=== PATIENT | female | born 1965 | race Caucasian/White ===

== ENCOUNTER 2023-03-24 12:27 | Outpatient (NON) | payer BC, SELFPAY | END 2023-03-24 12:28 | disposition home or self-care (01) | LOC: ANHLAB 03-25 12:29 | PROVIDERS: PCP Physician Assistant Medical; Visit Provider Nurse Practitioner | DX: L72.0 Epidermal cyst (principal) | CPT/HCPCS: 88305 ==

== ENCOUNTER 2023-07-19 10:44 | Emergency (ER) | payer BC, SELFPAY ==
[2023-07-19 10:57] VITALS: BP 127/85; PULSE 86; RESP 18; TEMP 36.6; O2SAT 100
--- NOTE | 2023-07-19 11:32 | ED.GENADULT ---
HPI - General Adult General Chief complaint: Upper Respiratory Infection Stated complaint: Sore Throt,Congestion Time Seen by Provider: 07/19/23 11:32 History of Present Illness HPI narrative: 58-year-old female presents to clinic with complaints of sore throat, hoarseness, pain when swallowing, itchy ears that started . Patient reports taking [id number] medication that has not really helped. Denies fevers, chills, body aches, nausea, vomiting, diarrhea, and abdominal pain. patient states she does take daily antihistamines but did not take it today. Related Data Home Medications Medication Instructions Recorded Confirmed cholecalciferol (vitamin D3) 25 25 mcg PO DAILY 06/09/22 08/18/22 mcg (1,000 unit) capsule curamin BYMOUTH 06/09/22 08/18/22 cyanocobalamin (vitamin B-12) 5,000 mcg PO DAILY 06/09/22 08/18/22 1,000 mcg capsule ascorbic acid (vitamin C) 25 mg mg PO 07/19/23 07/19/23 tablet loratadine 10 mg tablet 10 mg PO DAILY 07/19/23 07/19/23 Allergies Allergy/AdvReac Type Severity Reaction Status Date / Time No Known Allergies Allergy Verified 07/19/23 11:17 Review of Systems Review of Systems: CONSTITUTIONAL: Denies fever, chills, or sweats. EYES: Denies visual changes, redness, or discharge. ENT: Denies rhinorrhea, congestion, positive sore throat, hoarseness, painful swallowing, and denies otalgia. positive bilateral ear itching. CARDIOVASCULAR: Denies chest pain, palpitations, or edema. RESPIRATORY: Denies cough or dyspnea. GASTROINTESTINAL: Denies abdominal pain, nausea, vomiting, or diarrhea. GENITOURINARY: Denies dysuria or hematuria. SKIN: Denies rash or itching. MUSCULOSKELETAL: Denies back pain, joint pain, or myalgia. NEUROLOGIC: Denies headache, numbness, or weakness. PSYCHIATRIC: Denies anxiety or depression. [facility] Past Medical History Medical History Allergic rhinitis mold, dust Anemia Anxiety Arthritis Cervical dysphagia Depression Fibromyalgia High cholesterol Hypertension Screening mammogram, encounter for Surgical History Surgical History History of cryosurgery 1994 Family History Family History Mother Heart disease Grandparent Osteoporosis maternal grandmother Colon polyp paternal grandfather Father Diabetes mellitus Heart disease Sibling Pancreatic cancer Other Breast cancer maternal aunt Malignant tumor of ovary maternal aunt Social History Social History (Updated 08/18/22 @ 09:51 by Zully Galicia [facility]) Smoking status: Never smoker Alcohol intake: current Alcohol use details: ocassional 2 x year Substance use: never Substance use type: does not use Living arrangements: other Additional living arrangements comments: Occupation/Education: retired Additional occupation/education comments: instructional aid Gender identity (if verbalized by the patient): Female Sexual Orientation (if Verbalized by the Patient): Straight or Heterosexual Comments At the time of my signature I agree with nursing past medical history, surgical, social, and family history. There is no relevant family history pertinent to the presenting complaint. Exam Narrative: GENERAL: Well-appearing, well-nourished, and in no acute distress. HEAD: Normocephalic, atraumatic. EYES: PERRLA and EOMI. ENT: Nares clear, no rhinorrhea or epistaxis. Mucous membranes moist. posterior pharynx is erythematous and tonsils are 2+ with erythema. Patient is hoarse when talking. Bilateral TMs are clear no erythema or foreign bodies the canal. NECK: Supple. positive bilateral submandibular lymphadenopathy CHEST: Clear to auscultation. No respiratory distress. HEART: Regular rate and rhythm. No murmur heard. Normal peripheral pulses. ABDOMEN: Sof
== END 2023-07-19 12:05 | disposition home or self-care (01) ==
PROVIDERS: Emergency Provider Nurse Practitioner Family; PCP Physician Assistant Medical
DX: J04.0 Acute laryngitis (principal); I10 Essential (primary) hypertension; F32.A Depression, unspecified; F41.9 Anxiety disorder, unspecified; Z79.899 Other long term (current) drug therapy
CPT/HCPCS: 87081; 87880; 99213; G0463

== ENCOUNTER 2023-12-14 12:30 | Outpatient (RCR) | payer BC, SELFPAY ==
--- NOTE | 2023-09-25 10:05 | OPREHPOC ---
Outpatient Therapy Plan of Care This is a Multidisciplinary Plan of Care that may contain components documented by all disciplines (PT, OT, and ST.) PT Problem 1 PT Problem #1 Knowledge Deficit PT Goal 1 Goal Pt will be independent in HEP Pt will verbalize understanding of diagnosis and prognosis Target Visit 6 PT Problem 2 PT Problem #2 Impaired Flexibility PT Goal 1 Goal Pt will demo improved hamstring flexibility by 10 degrees Target Visit 6 PT Goal 2 Goal Pt will demo only mild iliotibial band tightness joe Target Visit 12 PT Problem 3 PT Problem #3 Impaired Strength PT Goal 1 Goal Pt will demo 3/5 strength of greater in all tested planes for improved lumbar stability Target Visit 6 PT Goal 2 Goal Pt will demo 4/5 strength of greater in all tested planes for improved lumbar stability Target Visit 12 PT Problem 4 PT Problem #4 Impaired Range of Motion PT Goal 1 Goal Pt will demo lumbar active ROM of 80% or greater with minimal discomfort Target Visit 12 PT Goal 2 Goal Will demo joe hip ROM WFL without pain
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
--- NOTE | 2023-11-10 14:57 | PTOPPROG ---
Assessment and note entered by Tayler Jo, PT Evaluation Information Assessment Status Progress Diagnosis low back pain, other muscle spasm Onset a couple months Subjective Information Pt reports back spasms are doing pretty good . Silas one starting on the right side but it went away. Has been icing or doing exercises, or stopped doing the activity causing the spasm. That has only been once or twice through therapy. Knots in legs and lower spasms have really improved. Numbness into left arm still happens but infrequently. Nots sitting and leaning on LUE will cause issue but hasn't noticed as often as used to be. Hasn't been to work as much lately due to work not needing her assistance. cont to deny pain shooting into legs. Self-perceived improvement: 85% Defintely feels improved. Reports Thursday going to [employer] she realized she didn't notice her neck bothering her. Assessment PT Clinical Summary Pt has attended therapy consistently for her low back pain. During her therapy sessions, it became apparent her thoracic spine was also causing detriment. Pt demo's today greatly improved mobility, improved strength, greatly improved pain scores (with exception of fibromyalgia flare up). Pt reports feeling 85% improved, has met all her short term goals, and has progressed toward all long-term goals. Pt will still benefit from physical therapy with a decreased focus on manual and increased focus on self mobilization, stretching, strengthening, and independent progression once finished with therapy to promote maintenance of low pain levels and healthy activity levels with less pain. Plan of Care Interventions Electrical Stimulation,Hot Pack/Cold Pack,Manual Therapy,Mechanical Traction,Neuro Re-education, Therapeutic Activities,Therapeutic Exercise,Self- Care/Home Management,Ultrasound PT Services Indicated Yes Treatment Frequency and 1x weekly x 4 visits
--- NOTE | 2023-12-15 16:17 | PTOPDC ---
Assessment and note entered by Tayler Jo, PT Evaluation Information Assessment Status Discharge Diagnosis low back pain, other muscle spasm Onset a couple months Subjective Information Pt states feels 90% improved overall. Still has flare ups but not as often or as intense. Is returning to work, and notes half days are fine , but whole eight hour days are harder. States she is not doing all her exercises daily, when having flare ups is not doing her exercises. Has been icing as needed. Reported Pain Level Pain Score 0,0,1: Self Report Pain Score 0,0,1: Self Report Assessment PT Clinical Summary Pt has attended therapy consistently for low back pain and muscle spasm. She also presented with neck pain and upper back pain among other areas, in addition to a co-morbidity of fibromyalgia. Her quality of movement has improved significantly over therapy, along with her flexibility and strength. She reports feeling 90% improved over the course of therapy, is returning to work, reports highest pain level at 5/10 when she over does it , and today was instructed in maintenance home programs as well as fitness activities. She was also instructed in work related mobility modifications to reduce the strain on her back. Pt has also been educated in fibromyalgia being a diagnosis with flare ups, and continued stretching and mobility will only benefit her in the long run. Pt has made exceptional progress with therapy and will thus be discharged. Plan of Care PT Services Indicated No
== END 2023-12-16 08:23 | disposition home or self-care (01) ==
LOC: ANHHIPT 12:30
PROVIDERS: PCP Physician Assistant Medical; Visit Provider Physician Assistant Medical
DX: M54.50 Low back pain, unspecified (principal); M62.838 Other muscle spasm
CPT/HCPCS: 97014; 97110; 97112; 97140; 97162; 97530; 97750; G0283

== ENCOUNTER 2025-03-15 14:00 | Outpatient (RCR) | payer BC, SELFPAY ==
--- NOTE | 2025-01-05 11:32 | PTOPEVAL1 ---
Assessment and note entered by Tayler Jo, PT Evaluation Information Assessment Status Evaluation Diagnosis Radiculopathy cervical region ICD-10 Condition Codes (PT) Cervicalgia M54.2 Subjective Information Pt states she napped wrong and woke up wiht tingling in her left arm The first week the pain was a 10 plus and nothing would help wiht relief. Tried ice, heat, TENS, ibuprofen. Tried chiropractor and would have relief during but as soon as it was done the pain returned. Has been doing dry needling with chriopractor and thinks this is helping slowly. PCP told her to continue dry needling, and also a couple steroid shots. Wanted to do injections but was to tender to handle this. Wants to try this on Jan 18 Also muscle relaxers, eleve and tylenol for break through This week hasn't had too much aleve and tylenol. wants to get injection when is calmed down. planIs going to try to do an adjustment with Tingling in ULUE is always slightly there, would feel along the top of the arm and digits 3-4, and then also underarm and armpit then added 2nd digit Fell 8/19 and didn't feel any worse accept soreness in underarm At times arm will feel really heavy like wiht washing hair Reported Pain Level Pain Score 4: Self Report Assessment PT Clinical Summary Pt presents with cervical radiculopathy, and imaging showing significant degenerative changes as well. Pt also his prior history of neck issues and fibromyalgia. Pain was initially very severe and has been seeking treatment from chiropractic with dry needling and medication management with PCP. Her pain has improved with this though still has pain up to 7/10 at times, decreases to 2/10 at best rating. She demonstrates tight upper traps, and cervical musculature, decreased ROM cervical spine. Pt will benefit from physical therapy to work within plan of PCP and chiropractor, and build upon progress with scapular and postural strengthening to support the neck, improve ROM and decompress nerves at the cervical spine and in the thoracic outlet areas. Plan of Care Interventions Electrical Stimulation,Hot Pack/Cold Pack, Mechanical Traction,Neuro Re-education,Patient/ Caregiver Education,Therapeutic Activities, Therapeutic Exercise,Self-Care/Home Management, Ultrasound,Other Other Interventions Taping, bracing PT Services Indicated Yes Treatment Frequency and 1-2x weekly x 10 visits Duration These treatments will address the objective and functional deficits as defined above. The patient will be advanced safely and appropriately in order for the patient to progress towards his/her prior level of function. Additional exercises will be introduced and as well as a comprehensive home exercise program upon discharge, if needed, ?to ensure carryover of functional gains achieved in the clinic. This treatment plan has been reviewed and agreement upon by the patient.
--- NOTE | 2025-01-05 11:32 | OPREHPOC ---
Outpatient Therapy Plan of Care This is a Multidisciplinary Plan of Care that may contain components documented by all disciplines (PT, OT, and ST.) PT Problem 1 PT Problem #1 Knowledge Deficit PT Goal 1 Goal / Goal Update Pt will be independent in HEP Pt will verbalize understanding of diagnosis and prognosis Target Visit 10 PT Problem 2 PT Problem #2 Pain PT Goal 1 Goal / Goal Update Pt will report lowest pain rating at 0/10 to show improvement in overall discomfort Target Visit 10 PT Goal 2 Goal / Goal Update Pt will report greatest pain level at 3/10 or less to improve ADLs and activities Target Visit 20 PT Problem 3 PT Problem #3 Impaired Range of Motion PT Goal 1 Goal / Goal Update Pt will demonstrate ROM increased by 10 degrees in flexion, and rotation joe to reduce strain on cervical musculature Target Visit 10 PT Goal 2 Goal / Goal Update Pt will demonstrate ROM cervical rotation of 60 degrees bilat for improved function Target Visit 20
--- NOTE | 2025-02-08 10:54 | PTOPPROG ---
Assessment and note entered by Tayler Jo, PT Evaluation Information Assessment Status Evaluation Diagnosis Radiculopathy cervical region ICD-10 Condition Codes (PT) Cervicalgia M54.2 Subjective Information Pt states she napped wrong and woke up with tingling in her left arm The first week the pain was a 10 plus and nothing would help with relief. Tried ice, heat, TENS, ibuprofen. Tried chiropractor and would have relief during but as soon as it was done the pain returned. Has been doing dry needling with chriopractor and thinks this is helping slowly. PCP told her to continue dry needling, and also a couple steroid shots. Wanted to do injections but was to tender to handle this. Wants to try this on Jan 18 Also muscle relaxers, eleve and tylenol for break through This week hasn't had too much aleve and tylenol. wants to get injection when is calmed down. planIs going to try to do an adjustment with Tingling in ULUE is always slightly there, would feel along the top of the arm and digits 3-4, and then also underarm and armpit then added 2nd digit Fell 8/19 and didn't feel any worse accept soreness in underarm At times arm will feel really heavy like wiht washing hair Assessment PT Clinical Summary Pt presents with cervical radiculopathy, and imaging showing significant degenerative changes as well. Pt also his prior history of neck issues and fibromyalgia. Pain was initially very severe and has been seeking treatment from chiropractic with dry needling and medication management with PCP. Her pain has improved with this though still has pain up to 7/10 at times, decreases to 2/10 at best rating. She demonstrates tight upper traps, and cervical musculature, decreased ROM cervical spine. Pt will benefit from physical therapy to work within plan of PCP and chiropractor, and build upon progress with scapular and postural strengthening to support the neck, improve ROM and decompress nerves at the cervical spine and in the thoracic outlet areas. Plan of Care Interventions Electrical Stimulation,Hot Pack/Cold Pack,Manual Therapy,Neuro Re-education,Patient/Caregiver Education,Therapeutic Activities,Therapeutic Exercise,Self-Care/Home Management,Ultrasound, Other Other Interventions Taping, bracing PT Services Indicated Yes Treatment Frequency and 1-2x weekly x 10 visits Duration These treatments will address the objective and functional deficits as defined above. The patient will be advanced safely and appropriately in order for the patient to progress towards his/her prior level of function. Additional exercises will be introduced and as well as a comprehensive home exercise program upon discharge, if needed, ?to ensure carryover of functional gains achieved in the clinic. This treatment plan has been reviewed and agreement upon by the patient.
--- NOTE | 2025-03-08 11:19 | PCPTNOTE ---
Pt called to cx scheduled physical therapy appointment this date due to being sick.
--- NOTE | 2025-03-15 14:48 | PTOPDC ---
Assessment and note entered by Tayler Jo, PT Evaluation Information Assessment Status Discharge Diagnosis Radiculopathy cervical region ICD-10 Condition Codes (PT) Cervicalgia M54.2 Subjective Information Reports N/T has resolved Taking shower this morning still feels some weakness. - resolved Reports 99-100% improved Reported Pain Level Pain Score 0: Self Report Assessment PT Clinical Summary Pt has attended therapy consistently for neck pain and radicular symptoms with associated weakness. Today she reports feeling 99-100% improved, states her radicular symptoms appear resolved, no longer feels weak in the LUE with use, neck pain and discomfort resolved as well. She shows overall greatly improved cervical ROM, though left rotation is functional but still somewhat lacking comparatively. Pt is happy with her progress and has met most of her therapy goals. She has been educated on her maintenance HEP and benefit of maintenance massages, as well as when to return to therapy in the future if needed. Thus she is being discharged for completion of therapy program . Plan of Care PT Services Indicated No
== END 2025-03-15 15:48 | disposition home or self-care (01) ==
LOC: ANHHIPT 14:00
PROVIDERS: PCP Physician Assistant Medical; Visit Provider Physician Assistant Medical
DX: M54.12 Radiculopathy, cervical region (principal)
CPT/HCPCS: 97014; 97110; 97140; 97162; 97530; 97750; G0283